=== PATIENT | female | born 1955 | race Caucasian/White ===

== ENCOUNTER → 2022-06-04 | Day surgery (SDC) | payer MEDICARE, OTHER ==
[2022-06-03 11:50] LABS: BASOPHILS # (AUTO) 0.1 (0.0-0.1); BASOPHILS % 0.8 % (0.0-1.0); EOSINOPHILS # (AUTO) 0.4 (0.0-0.4); EOSINOPHILS % 6.5 % (0.0-6.0); HEMATOCRIT 39.3 % (34.2-44.1); HEMOGLOBIN 12.5 g/dL (12.0-16.0); LYMPHOCYTES # (AUTO) 1.4 (1.0-3.2); LYMPHOCYTES % 22.8 % (18.0-39.1); MEAN CORPUSCULAR HEMOGLOBIN 29.3 pg (28-32); MEAN CORPUSCULAR HGB CONC 31.8 g/dL (31-35); MONOCYTES # (AUTO) 0.4 (0.2-0.8); MONOCYTES % 6.7 % (4.4-11.3); NEUTROPHILS # (AUTO) 3.9 (2.1-6.9); NEUTROPHILS % 62.7 % (38.7-80.0); PLATELET COUNT 221 x10e3/uL (140-360); RED BLOOD COUNT 4.27 x10e6/uL (3.6-5.1); RED CELL DISTRIBUTION WIDTH 13.3 % (11.7-14.4)
[~2022-06-04] MED LIST: CITALOPRAM HBR20 MG PO; CYCLOBENZAPRINE5 MG PO; FENTANYL CITRATE/PF 100MCG/2 ML INJ ONE; LACTATED RINGER'S 1,000 ML ONE; LIDOCAINE HCL 2% LOCAL INJ 5 ML SDV VIAL INJ ONE; LISINOPRIL10 MG PO; METOCLOPRAMIDE HCL 10 MG/2ML VIAL ONE; NEURONTIN400 MG PO; ONDANSETRON HCL4 MG PO; PAMELOR25 MG PO; PROMETHAZINE HC25 M1 PO; PROPOFOL IV EMULSION 10 MG/ML 20 ML VIAL ONE; PROTONIX20 MG PO
[2022-06-04 14:23] VITALS: BP 109/65
== END | disposition home or self-care (01) ==
LOC: ENDO 11:32
PROVIDERS: ATTEND Internal Medicine Gastroenterology
DX: K22.2 Esophageal obstruction (principal); K29.70 Gastritis, unspecified, without bleeding; K22.10 Ulcer of esophagus without bleeding; K22.5 Diverticulum of esophagus, acquired; K21.00 Gastro-esophageal reflux disease with esophagitis, without bleeding; K44.9 Diaphragmatic hernia without obstruction or gangrene; Z71.3 Dietary counseling and surveillance; I10 Essential (primary) hypertension; E78.00 Pure hypercholesterolemia, unspecified; G62.9 Polyneuropathy, unspecified; F32.A Depression, unspecified; F41.0 Panic disorder [episodic paroxysmal anxiety]; Z01.810 Encounter for preprocedural cardiovascular examination; Z01.812 Encounter for preprocedural laboratory examination; Z79.899 Other long term (current) drug therapy; Z68.27 Body mass index [BMI] 27.0-27.9, adult; Z85.3 Personal history of malignant neoplasm of breast; Z85.72 Personal history of non-Hodgkin lymphomas
CPT/HCPCS: 36415; 43239; 43450; 85025; 93005; C9113; J2001; J2704; J2765; J3010; J7121

== ENCOUNTER → 2022-07-28 | Outpatient (CLI) | payer MEDICARE ==
[~2022-07-28] MED LIST changes: +DIATRIZOATE MEGL/DIATRIZOA SOD 30 ML BTL PO ONE; -FENTANYL CITRATE/PF 100MCG/2 ML INJ ONE; +IOPAMIDOL 370 MG/ML 100 ML INFUS..BTL INJ ONE; -LACTATED RINGER'S 1,000 ML ONE; -LIDOCAINE HCL 2% LOCAL INJ 5 ML SDV VIAL INJ ONE; -METOCLOPRAMIDE HCL 10 MG/2ML VIAL ONE; -PROPOFOL IV EMULSION 10 MG/ML 20 ML VIAL ONE
[2022-07-28 13:16] LABS: CREATININE, SERUM 1.15 mg/dL (0.57-1.11)
== END ==
LOC: CT 12:18
PROVIDERS: ATTEND Internal Medicine Gastroenterology
DX: R22.1 Localized swelling, mass and lump, neck (principal); K22.5 Diverticulum of esophagus, acquired
CPT/HCPCS: 36415; 70491; 82565; 84520; Q9963; Q9967

== ENCOUNTER → 2023-06-09 | Outpatient (REF) | payer MEDICARE ==
[~2023-06-09] MED LIST changes: -DIATRIZOATE MEGL/DIATRIZOA SOD 30 ML BTL PO ONE; -IOPAMIDOL 370 MG/ML 100 ML INFUS..BTL INJ ONE; +TRAZODONE HCL50 MG PO
== END ==
LOC: DX 09:41
PROVIDERS: ATTEND Nurse Practitioner
DX: K29.60 Other gastritis without bleeding (principal)
CPT/HCPCS: 74280